=== PATIENT | male | born 1965 | race Caucasian/White ===

== ENCOUNTER → 2017-05-05 | Day surgery (SDC) | payer OTHER ==
[2017-04-29 07:39] VITALS: BMI 48.0
[~2017-05-05] VITALS: Ht 175.3 cm; Wt 150.0 kg
[~2017-05-05] MED LIST: ASPI81TA28 PO; ATOR-24 PO; CETI10TA84 PO; COEN60CA PO; LIDOCAINE HCL 2% 2 ML VIAL (20MG/ML) ONE; LISI10TA PO; POTA99TA PO; PROPOFOL IV EMULSION 10 MG/ML 20 ML VIAL IV ONE; SODIUM CHLORIDE 0.9% 500ML 500 ML IV ONE; ZINC100T2 PO
[2017-05-05 10:37] VITALS: Ht 175.3 cm; Wt 150.0 kg
--- NOTE | 2017-05-05 11:30 | Endo History and Physical ---
History & Physical Date of Service: May 05, 2017. Chief Complaint: screening Referring Physician: LE Garcia History of Present Illness 51 yo CM who presents for screening colonoscopy. Past Surgical History Hx Cardiac Surgery: Yes (HEART CATH, STENT X1) Hx Internal Defibrillator: No Hx Pacemaker: No Hx Abdominal Surgery: No Hx of Implantable Prosthesis: No Hx Post-Op Nausea and Vomiting: No Hx Cancer Surgery: No Hx Thoracic Surgery: No Hx Orthopedic: No Hx Urinary Tract Surgery: No Family History Colon CA Social History Smoking Status: Never Smoker Hx Substance Use: No Hx Alcohol Use: Yes (OCCASIONAL) Allergies Coded Allergies: No Known Allergies (Verified , NONE, 04/29/17) Current Medications Reported Home Medications Medications Dose Route/Sig Max Daily Dose Days Date Category Co-Enzyme Q-10 (Coenzyme Q10 (Ubidecarenone)) 60 Mg Cap 1 Tab PO QAM 04/29/17 Reported Zyrtec (Cetirizine HCl) 10 Mg Tab 10 Mg PO DAILY PRN 04/29/17 Reported Potassium 99 Mg Tab 1 Tab PO QAM 04/29/17 Reported Zinc 100 Mg Tab 1 Tab PO QAM 04/29/17 Reported Aspirin Ec (Aspirin) 81 Mg Tab 81 Mg PO QAM 04/29/17 Reported Lipitor (Atorvastatin Calcium) 40 Mg Tab 40 Mg PO HS 04/29/17 Reported Prinivil (Lisinopril) 10 Mg Tab 10 Mg PO QAM 04/29/17 Reported Vital Signs Weight (Kilograms): 150.00 Height (Feet): 5 Height (Inches): 9 Date Time Temp Pulse Resp B/P (MAP) Pulse Ox O2 Delivery O2 Flow Rate FiO2 05/05/17 10:41 37.1 79 20 154/73 (100) 96 Room Air Physical Exam General Appearance: WD/WN, no apparent distress Respiratory/Chest: Auscultation: breath sounds normal Cardiovascular: Heart Auscultation: RRR Abdomen: Bowel Sounds: normal Inspection & Palpation: soft, non-distended, no tenderness, guarding & rebound Assessment and Plan Assessment: 51 yo CM who presents for screening colonoscopy. Plan: Proceed with colonoscopy.
--- NOTE | 2017-05-05 11:59 | Discharge Instructions ---
Endoscopy Patient Instructions Date / Procedure(s) Performed May 05, 2017. Colonoscopy Allergy Information Coded Allergies: No Known Allergies (Verified , NONE, 04/29/17) Discharge Date / Findings May 05, 2017. Diverticulosis Medication Instructions OK to resume all medications today as prescribed Reported Home Medications Medications Dose Route/Sig Max Daily Dose Days Date Category Co-Enzyme Q-10 (Coenzyme Q10 (Ubidecarenone)) 60 Mg Cap 1 Tab PO QAM 04/29/17 Reported Zyrtec (Cetirizine HCl) 10 Mg Tab 10 Mg PO DAILY PRN 04/29/17 Reported Potassium 99 Mg Tab 1 Tab PO QAM 04/29/17 Reported Zinc 100 Mg Tab 1 Tab PO QAM 04/29/17 Reported Aspirin Ec (Aspirin) 81 Mg Tab 81 Mg PO QAM 04/29/17 Reported Lipitor (Atorvastatin Calcium) 40 Mg Tab 40 Mg PO HS 04/29/17 Reported Prinivil (Lisinopril) 10 Mg Tab 10 Mg PO QAM 04/29/17 Reported Provider Instructions Activity Restrictions - No exercising or heavy lifting for 24 hours. - Do not drink alcohol the day of the procedure. - Do not drive a car or operate machinery until the day after the procedure. - Do not make any important decisions or sign important papers in 24 hours after the procedure. Following Day: - Return to full activity which may include returning to work/school. Diet Start your diet with liquids and light foods (jello, soup, juice, toast). Then eat your usual diet if not nauseated. Treatment For Common After Affects For mild abdominal pain, bloating, or excessive gas: - Rest - Eat lightly - Lie on right side Follow-Up Information Follow-up with LE Garcia as scheduled Anesthesia Information What You Should Know You have had a procedure that required some medicine to reduce anxiety and discomfort. This treatment is called moderate sedation. After receiving the treatment, you may be sleepy, but you will be able to breathe on your own. The effects of the treatment may last for several hours. Follow these instructions along with Activity/Diet recommendations noted above: * Do NOT do anything where dizziness or clumsiness would be dangerous. * Rest quietly at home today, then you can be up and about tomorrow. * Have a responsible person stay with you the rest of today. * You may have had an I.V. today. If so, you may take the dressing off later today. Recommendations Call your doctor if: * Trouble breathing * Continuous vomiting for more than 24 hours * Temperature above 101 degrees * Severe abdominal pain or bloating * Pain not relieved by pain medicine ordered * There is increased drainage or redness from any incision * A large amount of rectal bleeding greater than 2-3 tablespoons. (If you had a polyp/s removed or have hemorrhoids, a small amount of blood - from the rectum is to be expected.) * You have any unanswered questions or concerns. IN THE EVENT OF A SERIOUS EMERGENCY, GO TO THE NEAREST EMERGENCY ROOM Your discharge instructions were prepared by provider Lupillo Deutsch. Patient Instructions Signature Page Chandler Almonte Patient (or Guardian) Signature/Date: I have read and understand the instructions given to me by my caregivers. Caregiver/RN/Doctor Signature/Date: The above-named patient and/or guardian has received patient instructions on this date. + Original Patient Signature Page (only) stays with chart. Please make copy for patient.
--- NOTE | 2017-05-05 12:03 | Anesthesiology Progress Note ---
Anesthesia Post Op Note Date & Time May 05, 2017 at 12:03 Vital Signs Pain Intensity: 0 Vital Signs Past 12 Hours Date Time Temp Pulse Resp B/P (MAP) Pulse Ox O2 Delivery O2 Flow Rate FiO2 05/05/17 10:41 37.1 79 20 154/73 (100) 96 Room Air Notes Mental Status: alert / awake / arousable, participated in evaluation Pt Amnestic to Procedure: Yes Nausea / Vomiting: adequately controlled Pain: adequately controlled Airway Patency, RR, SpO2: stable & adequate BP & HR: stable & adequate Hydration State: stable & adequate Anesthetic Complications: no major complications apparent
--- NOTE | 2017-05-05 12:08 | GI REPORT ---
Procedure Date: 05/05/2017 10:53 AM Procedure: Colonoscopy Indications: Screening for colorectal malignant neoplasm Medicines: Monitored Anesthesia Care Complications: No immediate complications. Estimated Blood Loss: Estimated blood loss: none. Procedure: Pre-Anesthesia Assessment: - Prior to the procedure, a History and Physical was performed, and patient medications and allergies were reviewed. The patient's tolerance of previous anesthesia was also reviewed. The risks and benefits of the procedure and the sedation options and risks were discussed with the patient. All questions were answered, and informed consent was obtained. Prior Anticoagulants: The patient has taken no previous anticoagulant or antiplatelet agents. ASA Grade Assessment: II - A patient with mild systemic disease. After reviewing the risks and benefits, the patient was deemed in satisfactory condition to undergo the procedure. After I obtained informed consent, the scope was passed under direct vision. Throughout the procedure, the patient's blood pressure, pulse, and oxygen saturations were monitored continuously. The scope was introduced through the anus and advanced to the cecum, identified by appendiceal orifice and ileocecal valve. The colonoscopy was performed without difficulty. The patient tolerated the procedure well. The quality of the bowel preparation was good. The terminal ileum, ileocecal valve, appendiceal orifice, and rectum were photographed. Findings: Multiple small-mouthed diverticula were found in the sigmoid colon. Impression: - Diverticulosis in the sigmoid colon. - No specimens collected. Recommendation: - Resume previous diet. - Continue present medications. - Repeat colonoscopy in 10 years for surveillance. - Return to primary care physician as previously scheduled. Lupillo Deutsch DO 05/05/2017 12:07:23 PM This report has been signed electronically. Note Initiated On: 05/05/2017 10:53 AM I attest to the content of the Intraoperative Record and orders documented therein, exceptions below
[2017-05-05 12:28] VITALS: BP 139/85; PULSE 71; O2SAT 95
== END | disposition home or self-care (01) ==
LOC: C.GI 10:19
PROVIDERS: ATTEND Internal Medicine
DX: Z12.11 Encounter for screening for malignant neoplasm of colon (principal); K57.30 Diverticulosis of large intestine without perforation or abscess without bleeding; Z80.0 Family history of malignant neoplasm of digestive organs; Z79.82 Long term (current) use of aspirin; Z79.899 Other long term (current) drug therapy